=== PATIENT | male | born 1965 | race Caucasian/White ===

== ENCOUNTER 2019-12-08 15:30 | Outpatient (CLI) | payer OTHER ==
--- NOTE | 2019-12-08 18:19 | MRI ---
EXAM: RIGHT SHOULDER MRI WITHOUT IV CONTRAST: 12/08/19 HISTORY: Right shoulder pain. Prior post arthrogram MRI, 02/19/15. FINDINGS: There is a persistent os acromiale with a persistent synchondrosis with subchondral cystic change and associated arthrosis. Severe arthrosis of the AC joint with downsloping of the lateral clavicle and the anterior acromion resulting in depression of the myotendinous region of the rotator cuff particul lillie at the supraspinatus level. There is an irregular full thickness tear of the supraspinatus tendo n particularly the mid tendon and the conjoint tendon region with retraction back to the level of th e humeral dome. Associated undersurface and delaminating tear of the infraspinatus tendon back to the level of the myotendinous region. Undersurface and delaminating tear of the subscapularis tendon. Mi ld muscle volume loss of the supraspinatus muscle and moderate muscle volume loss of the infraspinatu s muscle with complete fatty replacement changes of the teres minor muscle. 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 Extensive tears of the rotator cuff. Evidence for abnormal signal associated with the intra-articular biceps tendon and biceps anchor concerning for interstitial tears as well as a t ear of the superior labrum. Other findings as above. POS: TPC
== END 2019-12-08 15:31 | disposition home or self-care (01) ==
LOC: SCSMRI 15:30
PROVIDERS: ATTEND Orthopaedic Surgery
DX: M75.101 Unspecified rotator cuff tear or rupture of right shoulder, not specified as traumatic (principal); M25.511 Pain in right shoulder; M19.011 Primary osteoarthritis, right shoulder

== ENCOUNTER 2020-02-29 06:50 | Outpatient (CLI) | payer OTHER ==
[2020-02-29 10:43] LABS: #Eosinphils 0.2 thou/uL (0.0-0.7); #Lymphocytes 1.4 thou/uL (1.20-3.40); #Monocytes 0.7 thou/uL (0.11-0.59); #Neutrophils 4.2 thou/uL (1.40-6.50); %Basophils 0.7 % (0.0-1.0); %Eosinophils 3.7 % (0.0-10.0); %Monocytes 10.7 % (0.0-10.0); %Neutrophils 63.9 % (42.0-75.0); Hemoglobin 13.9 g/dL (14.0-18.0); Mean Corpuscular HGB CONC 32.4 g/dL (32.0-36.0); Mean Corpuscular Volume 92.5 fL (78.0-98.0); Mean Platelet Volume 7.9 fL (7.4-10.4); Platelet Count 182 thou/uL (130-400); RBC Distribution Width 11.4 % (11.5-14.5); Red Blood Cell (RBC) Count 4.62 mill/uL (4.70-6.10); White Blood Cell (WBC) Count 6.5 thou/uL (4.8-10.8)
[2020-02-29 11:05] LABS: Anion Gap 11 mmol/L (10-20); BUN (Urea Nitrogen) 19 mg/dL (8.4-25.7); Calc. Creatinine Clearance 0 mL/min (70-130); Calcium 9.4 mg/dL (7.8-10.44); Carbon Dioxide 26 mmol/L (22-29); Chloride 106 mmol/L (98-107); Estimated GFR-MDRD 72; Glucose 80 mg/dL (70-105); Potassium 4.3 mmol/L (3.5-5.1); Sodium 139 mmol/L (136-145)
--- NOTE | 2020-02-29 12:51 | EKG ---
Test Reason : Blood Pressure : / mmHG Vent. Rate : 054 BPM Atrial Rate : 054 BPM P-R Int : 146 ms QRS Dur : 084 ms QT Int : 416 ms P-R-T Axes : 028 026 007 degrees QTc Int : 394 ms Sinus bradycardia Otherwise normal ECG When compared with ECG of 02-AUG-2002 20:57, Vent. rate has decreased BY 39 BPM Inverted T waves have replaced nonspecific T wave abnormality in Inferior leads QT has shortened Confirmed by DR. Iris GOULD ([id number]) on 02/29/2020 12:51:20 PM Referred By: IERO Confirmed By:DR. Iris GOULD
[2020-02-29 17:59] LABS: SARS-CoV-2 MS2 Positive; SARS-CoV-2 N Gene Negative; SARS-CoV-2 S Gene Negative; SARS-CoV-2 orf1ab Negative
== END 2020-02-29 06:51 | disposition home or self-care (01) ==
LOC: LABBT 06:50
PROVIDERS: ATTEND Orthopaedic Surgery
DX: Z01.812 Encounter for preprocedural laboratory examination (principal); Z11.59 Encounter for screening for other viral diseases; M75.101 Unspecified rotator cuff tear or rupture of right shoulder, not specified as traumatic; Z01.818 Encounter for other preprocedural examination
CPT/HCPCS: 80048; 85025; 87635; 93005; 93010; U0002

== ENCOUNTER 2020-03-02 07:19 | Day surgery (SDC) | payer OTHER ==
[2020-02-29 10:06] VITALS: BMI 34.8
[2020-03-02] MEDS ORDERED: Vancomycin 1.5 GRAM/300 ML BAG 1.5 GM/300 ML BAG ONE (07:31)
[2020-03-02] MEDS ORDERED: Midazolam HCl 2 mg/2 ml Vial ONE ×2 (08:56→09:46)
[2020-03-02] MEDS ORDERED: Fentanyl 100 MCG/2 ML VIAL ONE ×2 (08:56→09:46)
[2020-03-02] MEDS ORDERED: HYDROcodone/Acetaminophen 10/325 mg Tablet PO PRN ×2 (10:25)
[2020-03-02] MEDS ORDERED: Ketorolac Tromethamine 30 MG/ML VIAL IVP PRN (10:25)
[2020-03-02] MEDS ORDERED: Zolpidem Tartrate 5 MG TAB PO PRN (10:25)
[2020-03-02] MEDS ORDERED: Ondansetron PF 4 MG/2 ML Vial IVP PRN (10:25)
[2020-03-02] MEDS ORDERED: Acetaminophen 325 MG TAB PO PRN (10:25)
[2020-03-02] MEDS ORDERED: Promethazine HCl 25 MG/ML VIAL IM PRN (10:25)
[2020-03-02] MEDS ORDERED: traMADol HCl 50 MG TAB PO PRN ×2 (10:25)
[2020-03-02] MEDS ORDERED: Ropivacaine 0.2% 550 ML 550 ML NERVE BLCK SCH (10:25)
[2020-03-02] MEDS ORDERED: Fentanyl 100 MCG/2 ML VIAL SLOW IVP PRN (10:26)
[2020-03-02] MEDS ORDERED: Ropivacaine 0.5% HCl/PF (150 MG/30 ML VIAL) ONE (11:25)
[2020-03-02] MEDS ORDERED: Ondansetron PF 4 MG/2 ML Vial ONE (11:25)
[2020-03-02] MEDS ORDERED: Ketorolac Tromethamine 30 MG/ML VIAL ONE (11:25)
[2020-03-02] MEDS ORDERED: Dexamethasone 20 MG/5 ML VIAL ONE (11:25)
[2020-03-02] MEDS ORDERED: Glycopyrrolate 0.2 MG/ML 5 ML SYRINGE ONE (11:25)
[2020-03-02] MEDS ORDERED: PROPOFOL 200 MG/20 ML VIAL ONE (11:25)
[2020-03-02] MEDS ORDERED: Lidocaine 1% PF 5 ML VIAL ONE (11:25)
[2020-03-02] MEDS ORDERED: Rocuronium Bromide 10 MG/ML (10ML VIAL) ONE (11:25)
--- NOTE | 2020-03-05 08:36 | OP ---
DATE OF PROCEDURE: 03/02/2020 PREOPERATIVE DIAGNOSES: 1. Right shoulder impingement. 2. Right shoulder rotator cuff tear. 3. Right shoulder biceps tendon tear and instability. POSTOPERATIVE DIAGNOSES: 1. Right shoulder impingement. 2. Right shoulder rotator cuff tear. 3. Right shoulder biceps tendon tear and instability. PROCEDURES PERFORMED: Right open subacromial decompression followed by right open rotator cuff repair followed by right open biceps tenodesis. PLATING STRIPPER: Ronn Cantu PA-C BLOOD LOSS: Around 100. COMPLICATIONS: None. ANESTHESIA: The patient did have a general anesthetic. He also had a preoperative block. DISPOSITION: He did go to recovery room in stable condition. IMPLANTS: We used a 7 x 23 BioComposite Bio-Tenodesis screw for the biceps tenodesis. We used 2 BioComposite rotator cuff anchors and two 4.75 BioComposite SwiveLock to complete our rotator cuff repair. INDICATIONS: A 55-year-old male was found on exam and MRI scan to have a large complex cuff tear as well as biceps tendon tearing and instability and at this time, he opted to have surgical repair of this. DESCRIPTION OF PROCEDURE: After all appropriate consent forms were explained and signed, he was taken to the operating time and at this time was given general anesthetic. Once the level of anesthesia was appropriate, he was placed in a modified beach chair position with all bony prominences well padded. The right shoulder and upper extremity were then prepped and draped in standard surgical fashion. Bony anatomical landmarks were drawn out. We then made our incision anteriorly down through the skin only. Bovie was used to coagulate any brisk venous bleeding. Deltoid fascia was opened sharply and we took our anterior deltoid off the acromion subperiosteally in full thickness for later repair. This exposed the acromion and a saw was used to perform a small anterior-inferior acromioplasty. We were very careful not to get too aggressive on this as the patient was known to have an os acromiale. At this time, we were able to then remove our bursa and expose the rotator cuff pathology. We did remove a large disk of degenerative tissue at the AC joint. The distal clavicle itself was left alone. Once we were able to document our tear, we first turned our attention to the biceps tendon. The anterior most portion of the tear was at the beginning of the supraspinatus, the biceps tendon was visualized, that was found to be unstable and easily pulled posteriorly out of the bicipital groove. A curved Lara scissors was then used to cut it off the superior labral insertion. We then opened up the bicipital groove completely, coagulating any brisk venous bleeding and cleaning out any synovial tissue. We then sutured our tendon, removed the intra-articular portion of this, placed our guidewire, drilled and placed a 7 x 23 BioComposite Bio-Tenodesis screw in standard fashion. Sutures were tied over top of this so it could not back out. At this time, we turned our attention to the rotator cuff. The edges were debrided with new 15 blade. We then were able to lift up and evaluate and find our horizontal cleavage component of the rotator cuff. The more inferior component was pulled out laterally to pull it out to its normal length. We then used multiple interrupted Vicryl sutures going from top down, down up and tying these on top to repair our cleavage component of our rotator cuff tear. Once this was done, we did medialize our tendon approximately 6 mm removing the cartilage in this area. We then used a combination of 15 blade, curette, and rongeur to remove all soft tissue off of a large area of the greater tuberosity so that we would prepare the bed for the tendon to heal. Once this was done, we drilled some holes with a wire down through the tuberosity in multiple places, hoping to get bone marrow through these vents for later healing. We then used two of these holes by placing our tap and placing our BioComposite rotator cuff anchors directly off the articular edge. These anchors each had one set of normal sutures and one set of FiberTape. We then cut the FiberTape so it was in 2 limbs, and we then used the CornerBlueorpion device to pass one set of suture posteriorly for the posterior-most area of the rotator cuff tear reapproximation followed by placing our two FiberTapes approximately a centimeter apart. We then did the same for our anterior-most anchor. At this time, we pulled laterally on our traction sutures with the arm sitting at his side and then we set our two mattress sutures, one anterior and one posterior beginning our repair. Once these were tied, we then placed one FiberTape stitch from each anchor into an anterior and a posterior lateral row for a double-row repair. After this had been performed, we had excellent anterior cuff repair with compression of the tissue along the tuberosity and at this time, the arm was taken through full range of motion and we were very happy with this repair. At this time, we thoroughly irrigated and dried the wounds. We then placed multiple interrupted #1 Ethibond sutures to repair the deltoid through the acromion bone and to the periosteal soft tissue sleeve posteriorly. Once this had been done, we then took a large Vicryl and overran this and closed our deltoid fascia distally. We thoroughly irrigated and dried some more. We than used 2-0 Vicryl and karl to close the skin. At this time, a bulky sterile dressing was applied. The patient then had a Smart Sling placed on him and on his arm while he was asleep at this time. Once this had been placed, he was finally woken up and he was taken to recovery room in stable condition. All counts were correct at the end of the case and he did receive preoperative IV antibiotics. Job ID: [id number] [facility]ITALWanda
== END 2020-03-02 15:42 | disposition home or self-care (01) ==
LOC: SDC 07:19
PROVIDERS: ATTEND Orthopaedic Surgery
PROC: 3E0T3BZ Introduction of Anesthetic Agent into Peripheral Nerves and Plexi, Percutaneous Approach (ICD-10-PCS; principal; 2020-03-02)
PROC: 0RHJ04Z Insertion of Internal Fixation Device into Right Shoulder Joint, Open Approach (ICD-10-PCS; principal; 2020-03-02)
PROC: 0LQ10ZZ Repair Right Shoulder Tendon, Open Approach (ICD-10-PCS; principal; 2020-03-02)
PROC: 0LS30ZZ Reposition Right Upper Arm Tendon, Open Approach (ICD-10-PCS; principal; 2020-03-02)
PROC: 0RNJ0ZZ Release Right Shoulder Joint, Open Approach (ICD-10-PCS; principal; 2020-03-02)
DX: M75.101 Unspecified rotator cuff tear or rupture of right shoulder, not specified as traumatic (principal); M25.811 Other specified joint disorders, right shoulder; S46.111A Strain of muscle, fascia and tendon of long head of biceps, right arm, initial encounter; G89.18 Other acute postprocedural pain; E78.5 Hyperlipidemia, unspecified; G47.33 Obstructive sleep apnea (adult) (pediatric); Z79.899 Other long term (current) drug therapy; Z88.8 Allergy status to other drugs, medicaments and biological substances
CPT/HCPCS: A4306; C1713; J0690; J1100; J1885; J2001; J2250; J2405; J2704; J2795; J3010; J3370

== ENCOUNTER 2020-07-01 19:30 | Outpatient (CLI) | payer OTHER | END 2020-07-01 19:31 | disposition home or self-care (01) | LOC: SLEEPLAB 19:30 | PROVIDERS: ATTEND Family Medicine | DX: G47.33 Obstructive sleep apnea (adult) (pediatric) (principal); R53.83 Other fatigue; E66.9 Obesity, unspecified; R06.83 Snoring; F41.9 Anxiety disorder, unspecified; G47.00 Insomnia, unspecified; G47.10 Hypersomnia, unspecified; G47.61 Periodic limb movement disorder; Z68.33 Body mass index [BMI] 33.0-33.9, adult | CPT/HCPCS: 95811 ==

== ENCOUNTER 2020-11-01 10:13 | Inpatient (IN) | payer OTHER ==
[2020-11-01 11:18] LABS: ALT (SGPT) 48 U/L (8-55); AST (SGOT) 116 U/L (5-34); Albumin 3.8 g/dL (3.5-5.0); Alkaline Phosphatase 84 U/L (40-110); Anion Gap 15 mmol/L (10-20); BUN (Urea Nitrogen) 17 mg/dL (8.4-25.7); Bilirubin, Total 0.5 mg/dL (0.2-1.2); CK (CPK) Greater than 4000 U/L (30-200); Calc. Creatinine Clearance 0 mL/min (70-130); Calcium 8.3 mg/dL (7.8-10.44); Carbon Dioxide 23 mmol/L (22-29); Chloride 107 mmol/L (98-107); Globulin 3.1 g/dL (2.4-3.5); Glucose 107 mg/dL (70-105); Lipase 24 U/L (8-78); Potassium 4.7 mmol/L (3.5-5.1); Protein, Total 6.9 g/dL (6.0-8.3); Sodium 140 mmol/L (136-145)
[2020-11-01 11:19] LABS: #Basophils 0.1 thou/uL (0.0-0.2); #Eosinphils 0.3 thou/uL (0.0-0.7); #Lymphocytes 1.7 thou/uL (1.20-3.40); #Monocytes 1.2 thou/uL (0.11-0.59); #Neutrophils 7.1 thou/uL (1.40-6.50); %Basophils 0.6 % (0.0-1.0); %Eosinophils 3.3 % (0.0-10.0); %Lymphocytes 16.5 % (21.0-51.0); %Monocytes 11.7 % (0.0-10.0); %Neutrophils 67.9 % (42.0-75.0); Hemoglobin 13.7 g/dL (14.0-18.0); Mean Corpuscular HGB CONC 33.2 g/dL (32.0-36.0); Mean Corpuscular Hemoglobin 29.6 pg (27.0-31.0); Mean Corpuscular Volume 89.2 fL (78.0-98.0); Mean Platelet Volume 8.4 fL (7.4-10.4); Platelet Count 110 thou/uL (130-400); Platelet Morphology Comment Appears Decreased; RBC Distribution Width 11.2 % (11.5-14.5); Red Blood Cell (RBC) Count 4.63 mill/uL (4.70-6.10); White Blood Cell (WBC) Count 10.5 thou/uL (4.8-10.8)
[2020-11-01 11:20] LABS: MDiff Complete? YES
--- NOTE | 2020-11-01 11:34 | ULT ---
Venous duplex sonogram left lower extremity HISTORY: Left leg pain and edema. FINDINGS: Good color and spectral Doppler flow and compression of the common femoral vein and greater saphenous junction. Echogenic material with lack of compressibility is present within the femoral and popliteal veins and extends into the posterior tibial vein. Some residual flow around the thrombu s. IMPRESSION : Extensive incompletely occlusive DVT throughout the left leg.
[2020-11-01] MEDS ORDERED: Loperamide HCl 2 MG CAP PO PRN (11:57)
[2020-11-01] MEDS ORDERED: Ondansetron PF 4 MG/2 ML Vial IVP PRN (11:57)
[2020-11-01] MEDS ORDERED: Loratadine 10 MG TAB PO PRN (11:57)
[2020-11-01] MEDS ORDERED: Calcium Carbonate 500 MG ChewTAB PO PRN (11:57)
[2020-11-01] MEDS ORDERED: Ondansetron ODT 4 MG TAB PO PRN (11:57)
[2020-11-01] MEDS ORDERED: Guaifenesin DM 100-10/5 ML UDCUP PO PRN (11:57)
[2020-11-01] MEDS ORDERED: Cepastat Lozenges 1 LOZ PO PRN (11:57)
[2020-11-01] MEDS ORDERED: Labetalol HCl 100 MG/20 ML VIAL SLOW IVP PRN (11:57)
[2020-11-01] MEDS ORDERED: Bisacodyl 10 MG SUPP PR PRN (11:57)
[2020-11-01] MEDS ORDERED: Senokot S 8.6-50 MG TAB PO PRN (11:57)
[2020-11-01] MEDS ORDERED: HYDROcodone/Acetaminophen 5/325 mg Tablet PO PRN (11:57)
[2020-11-01] MEDS ORDERED: Diabetic Tussin 200 MG/10 ML UDCUP PO PRN (11:57)
[2020-11-01] MEDS ORDERED: Acetaminophen 325 MG TAB PO PRN (11:57)
[2020-11-01] MEDS ORDERED: Sodium Chloride 0.65% Nasal 44 ML BOT EA NARE PRN (11:57)
[2020-11-01] MEDS ORDERED: Zolpidem Tartrate 5 MG TAB PO PRN (11:57)
[2020-11-01] MEDS ORDERED: hydrALAZINE 20 MG/ML VIAL SLOW IVP PRN (11:57)
[2020-11-01] MEDS ORDERED: Aspirin Chewable 81 MG TAB ONE (12:26)
[2020-11-01] MEDS ORDERED: Enoxaparin Sodium 100 MG/ML SYRINGE ONE (12:26)
[2020-11-01] MEDS: Sodium Chloride 0.9% 1,000 ML IV SCH ×2 (16:18→23:12)
[2020-11-01 16:21] VITALS: BMI 35.6
[2020-11-01] MEDS: Famotidine 20 MG TAB PO SCH (20:03)
[2020-11-01] MEDS: Enoxaparin Sodium 30 MG/0.3 ML SYRINGE SC SCH (20:03)
[2020-11-01] MEDS: Enoxaparin Sodium 80 MG/0.8 ML SYRINGE SC SCH (20:03)
[2020-11-01 21:27] LABS: SARS-CoV-2 MS2 Positive; SARS-CoV-2 N Gene Negative; SARS-CoV-2 S Gene Negative; SARS-CoV-2 by NAA Not Detected (NotDetected); SARS-CoV-2 orf1ab Negative
[2020-11-02 04:48] LABS: Hemoglobin 11.7 g/dL (14.0-18.0); Platelet Count 101 thou/uL (130-400)
[2020-11-02 04:49] LABS: Prothrombin Time 13.8 sec (12.0-14.7)
[2020-11-02 05:01] LABS: ALT (SGPT) 35 U/L (8-55); AST (SGOT) 72 U/L (5-34); Albumin 3.1 g/dL (3.5-5.0); Alkaline Phosphatase 62 U/L (40-110); Anion Gap 10 mmol/L (10-20); BUN (Urea Nitrogen) 12 mg/dL (8.4-25.7); Bilirubin, Total 0.6 mg/dL (0.2-1.2); CK (CPK) 2428 U/L (30-200); Calc. Creatinine Clearance 161 mL/min (70-130); Carbon Dioxide 25 mmol/L (22-29); Chloride 108 mmol/L (98-107); Globulin 2.4 g/dL (2.4-3.5); Glucose 89 mg/dL (70-105); Protein, Total 5.5 g/dL (6.0-8.3); Sodium 139 mmol/L (136-145)
--- NOTE | 2020-11-02 06:12 | HP ---
PRIMARY CARE PHYSICIAN: Dr. Allan Clement. REASON FOR ADMISSION: DVT and rhabdomyolysis. HISTORY OF PRESENT ILLNESS: A 55-year-old male who has a history of obesity and sleep apnea, who presented to emergency room with increasing left lower extremity swelling since yesterday, the patient was having pain in his left leg, the patient was also having body ache and muscle pain, he did not have any fever or chills. He had one day nausea, vomiting, diarrhea that has been resolved, but he denies any upper or lower respiratory symptoms, he denies any exposure with COVID-19, he denies any flu like illness, he denies any flu vaccination. In the emergency room, the patient's left lower extremity was swollen and ultrasound was done, which was positive for DVT, the patient was given Lovenox 1 mg/kg, the patient was also found with associated rhabdomyolysis, the patient is being admitted to the hospital for further evaluation and treatment. PAST MEDICAL HISTORY: 1. History of CHECKER LOADER vasculitis in 2001. 2. Morbid obesity. 3. Obstructive sleep apnea. 4. Dyslipidemia. PAST SURGICAL HISTORY: Appendicectomy in 1979, brain biopsy and temporal biopsy in 2001, colonoscopy. PAST PSYCHIATRIC HISTORY: Reviewed and negative. FAMILY HISTORY: Positive for hypertension as well as diabetes among several family members. No family history of blood clot disorder. SOCIAL HISTORY: The patient is , no history of tobacco, alcohol, or illicit drug abuse. MEDICATIONS: The patient is taking, 1. Vitamin D3 one capsule daily. 2. Multivitamin daily. 3. Viagra as needed. 4. CPAP. ALLERGIES: THE PATIENT IS ALLERGIC TO ZOCOR, WHICH GIVES MUSCLE WEAKNESS. REVIEW OF SYSTEMS: All review of systems reviewed and negative except as mentioned in HPI. PHYSICAL EXAMINATION: VITAL SIGNS: On arrival, blood pressure 120/75, pulse 82, respiratory rate 18, temperature 98.6, saturation 98% on room air. Weight 250 pounds. GENERAL: The patient is currently alert and awake. No acute distress. HEENT: Head; normocephalic, atraumatic. NECK: Supple. No JVD. No meningeal signs of irritation. LUNGS: Clear to auscultation without any rhonchi or rales. CARDIAC: S1 and S2 regular. No murmur. No gallop. No rub. ABDOMEN: Morbid opacity, limiting examination. No peritoneal signs. No guarding. No rigidity. No rebound. BACK: Unremarkable. No CVA tenderness. EXTREMITIES: Upper extremities, passive movement of all joints are normal. Lower extremity, left lower extremity is swollen and tender. No erythema. PSYCHIATRIC: Normal affect. NEUROLOGIC: Nonfocal examination. SIGNIFICANT LABORATORY DATA: CBC; WBC 10.5, hemoglobin 13.7, platelet 110. D-dimer 10.7. BMP; sodium 140, potassium 4.7, chloride 107, carbon dioxide 23, BUN 17, creatinine 0.88, glucose 107, calcium 8.3. LFT; AST 116, ALT 48, alkaline phosphatase 84, albumin 3.8. CK greater than 4000. Troponin I 0.023. BNP 34. Lipase 24. Ultrasound lower extremity showing popliteal vein and posterior tibial vein deep vein thrombosis. ASSESSMENT AND PLAN: 1. Acute left lower extremity deep vein thrombosis. The patient does not have any provocating factor, no immobilization, no trauma, the patient has associated rhabdomyolysis, the patient has extensive deep vein thrombosis. We will consider keeping in hospital and closely monitor, we will start with Lovenox 1 mg/kg subcu twice daily, eventually we will convert to oral anticoagulant therapy like Eliquis or Xarelto upon discharge. The patient will need age-appropriate cancer screening after discharge. 2. Rhabdomyolysis. We will check COVID-19, we will continue with IV fluid and monitor total CK level, when total CK level is improved, then we will consider discharging him home. 3. Obstructive sleep apnea, on CPAP. The patient will continue CPAP machine. 4. Mild thrombocytopenia. We will monitor platelet counts while on heparin. 5. Deep vein thrombosis prophylaxis. The patient is already on full dose of Lovenox therapy. 6. GI prophylaxis, Pepcid 20 mg p.o. twice daily. 7. Morbid obesity. Dietary education given. Weight loss education given. DISPOSITION PLAN: Based on clinical course. Plan of care discussed with the patient and family member at bedside. Job ID: [id number]
[2020-11-02] MEDS: Enoxaparin Sodium 30 MG/0.3 ML SYRINGE SC SCH ×2 (08:12→20:41)
[2020-11-02] MEDS: Enoxaparin Sodium 80 MG/0.8 ML SYRINGE SC SCH ×2 (08:12→20:41)
[2020-11-02] MEDS: Famotidine 20 MG TAB PO SCH ×2 (08:13→20:41)
[2020-11-02] MEDS: Sodium Chloride 0.9% 1,000 ML IV SCH ×2 (10:10→20:42)
--- NOTE | 2020-11-02 12:46 | PDOC.HOSPP ---
- Subjective Encounter Date: 11/02/20 Encounter Time: 07:00 Subjective: Patient seen and examined. No new complaints. No overnight events - Objective Vital Signs & Weight: Vital Signs (12 hours) Temp Pulse Resp BP BP Pulse Ox 11/02/20 11:55 97.9 F 54 L 18 137/70 96 11/02/20 08:12 95 11/02/20 08:08 99.0 F 56 L 18 139/83 95 11/02/20 04:41 95 11/02/20 04:00 98.9 F 70 16 122/71 93 L Weight Weight 255 lb 1.6 oz I&O: 11/01/20 11/02/20 11/03/20 06:59 06:59 06:59 Intake Total 2120 Output Total 1550 Balance 570 Result Diagrams: 11/02/20 04:00 11/02/20 04:00 Hospitalist ROS - Review of Systems Constitutional: denies: fever, chills, sweats, weakness, malaise, other Eyes: denies: pain, vision change, conjunctivae inflammation, eyelid inflammation, redness, other ENT: denies: ear pain, ear discharge, nose pain, nose discharge, nose congestion, mouth pain, mouth swelling, throat pain, throat swelling, other Respiratory: denies: cough, dry, shortness of breath, hemoptysis, SOB with excertion, pleuritic pain, sputum, wheezing, other Cardiovascular: denies: chest pain, palpitations, orthopnea, paroxysmal noc. dyspnea, edema, light headedness, other Gastrointestinal: denies: nausea, vomiting, abdominal pain, diarrhea, constipation, melena, hematochezia, other Genitourinary: denies: dysuria, frequency, incontinence, hematuria, retention, other Musculoskeletal: denies: neck pain, shoulder pain, arm pain, back pain, hand pain, leg pain, foot pain, other Skin: denies: rash, lesions, shaneka, bruising, other - Medication Medications: Active Medications Generic Name Dose Route Start Last Admin Trade Name Freq PRN Reason Stop Dose Admin Enoxaparin Sodium 80 mg 11/01/20 21:00 11/02/20 08:12 Enoxaparin Sodium 80 Mg/0.8 Ml Syringe SC 80 mg 0900,2100 ISSAC Administration Enoxaparin Sodium 30 mg 11/01/20 21:00 11/02/20 08:12 Enoxaparin Sodium 30 Mg/0.3 Ml Syringe SC 30 mg Q12HR ISSAC Administration Famotidine 20 mg 11/01/20 21:00 11/02/20 08:13 Famotidine 20 Mg Tab PO 20 mg BID ISSAC Administration Sodium Chloride 1,000 mls @ 100 mls/hr 11/01/20 12:00 11/02/20 10:10 Normal Saline 0.9% IV 1,000 mls .Q10H ISSAC Administration - Exam General Appearance: NAD, awake alert Eye: PERRL, anicteric sclera ENT: normocephalic atraumatic, no oropharyngeal lesions Neck: supple, symmetric, no JVD, no thyromegaly Heart: RRR, no murmur, no gallops, no rubs Respiratory: no wheezes, no rales, no ronchi Gastrointestinal: soft, non-tender, non-distended, normal bowel sounds Extremities: no cyanosis, no clubbing Skin: normal turgor, no lesions Neurological: no focal deficits Musculoskeletal: normal tone, normal strength Psychiatric: normal affect, normal behavior, A&O x 3 Hosp A/P (1) Deep vein thrombosis Code(s): I82.409 - ACUTE EMBOLISM AND THOMBOS UNSP DEEP VN UNSP LOWER EXTREMITY Status: Acute Qualifiers: DVT location: lower extremity Affected thrombotic vein of extremity: popliteal Laterality: left (2) Rhabdomyolysis Code(s): M62.82 - RHABDOMYOLYSIS Status: Acute Qualifiers: Rhabdomyolysis type: non-traumatic Qualified Code(s): M62.82 - Rhabdomyolysis (3) Obesity (BMI 30-39.9) Code(s): E66.9 - OBESITY, UNSPECIFIED Status: Chronic (4) NEGRITA on CPAP Code(s): G47.33 - OBSTRUCTIVE SLEEP APNEA (ADULT) (PEDIATRIC); Z99.89 - DEPENDENCE ON OTHER ENABLING MACHINES AND DEVICES Status: Chronic - Plan old records reviewed/req, DVT proph w/lovenox Continue Lovenox 1 mg/kg Continue IV fluid Repeat CK level tomorrow Ambulate as tolerated We will consider changing to Eliquis in the next 24 hours, Expecting discharge in 24 to 48 hours.
[2020-11-03] MEDS: Sodium Chloride 0.9% 1,000 ML IV SCH ×3 (06:12→20:52)
[2020-11-03] MEDS: Famotidine 20 MG TAB PO SCH ×2 (08:49→20:00)
[2020-11-03] MEDS: Enoxaparin Sodium 80 MG/0.8 ML SYRINGE SC SCH (08:50)
[2020-11-03] MEDS: Enoxaparin Sodium 30 MG/0.3 ML SYRINGE SC SCH (08:50)
--- NOTE | 2020-11-03 09:54 | PDOC.HOSPP ---
- Subjective Encounter Date: 11/03/20 Encounter Time: 08:00 Subjective: Patient seen and examined bedside today, no overnight event, patient is clinically doing better, he has no muscle pain, his total CK is also reducing, - Objective Vital Signs & Weight: Vital Signs (12 hours) Temp Pulse Resp BP Pulse Ox 11/03/20 07:15 98.5 F 86 18 134/80 95 11/03/20 05:41 98 11/03/20 02:42 98.6 F 60 13 137/73 98 Weight Weight 255 lb 1.6 oz I&O: 11/02/20 11/03/20 11/04/20 06:59 06:59 06:59 Intake Total 2120 3810 Output Total 1550 2975 Balance 570 835 Result Diagrams: 11/02/20 04:00 11/02/20 04:00 EKG Reviewed by me: Yes (NSR) Hospitalist ROS - Review of Systems ENT: denies: ear pain, ear discharge, nose pain, nose discharge, nose congestion, mouth pain, mouth swelling, throat pain, throat swelling, other Respiratory: denies: cough, dry, shortness of breath, hemoptysis, SOB with excertion, pleuritic pain, sputum, wheezing, other Cardiovascular: denies: chest pain, palpitations, orthopnea, paroxysmal noc. dyspnea, edema, light headedness, other Gastrointestinal: denies: nausea, vomiting, abdominal pain, diarrhea, const ipation, melena, hematochezia, other Genitourinary: denies: dysuria, frequency, incontinence, hematuria, retention, other Musculoskeletal: denies: neck pain, shoulder pain, arm pain, back pain, hand pain, leg pain, foot pain, other - Medication Medications: Active Medications Generic Name Dose Route Start Last Admin Trade Name Freq PRN Reason Stop Dose Admin Enoxaparin Sodium 80 mg 11/01/20 21:00 11/03/20 08:50 Enoxaparin Sodium 80 Mg/0.8 Ml Syringe SC 80 mg 0900,2100 ISSAC Administration Enoxaparin Sodium 30 mg 11/01/20 21:00 11/03/20 08:50 Enoxaparin Sodium 30 Mg/0.3 Ml Syringe SC 30 mg Q12HR ISSAC Administration Famotidine 20 mg 11/01/20 21:00 11/03/20 08:49 Famotidine 20 Mg Tab PO 20 mg BID ISSAC Administration Sodium Chloride 1,000 mls @ 100 mls/hr 11/01/20 12:00 11/03/20 06:12 Normal Saline 0.9% IV 1,000 mls .Q10H ISSAC Administration - Exam General Appearance: NAD, awake alert Eye: PERRL, anicteric sclera ENT: normocephalic atraumatic, no oropharyngeal lesions Neck: supple, symmetric, no JVD, no thyromegaly Heart: RRR, no murmur, no gallops, no rubs Respiratory: CTAB, no wheezes, no rales, no ronchi Gastrointestinal: soft, non-tender, non-distended, normal bowel sounds Extremities: no cyanosis, no clubbing, no edema Skin: normal turgor, no lesions, no rashes Neurological: no focal deficits Musculoskeletal: normal tone, normal strength, no muscle wasting Psychiatric: normal affect, normal behavior, A&O x 3 Hosp A/P (1) Deep vein thrombosis Code(s): I82.409 - ACUTE EMBOLISM AND THOMBOS UNSP DEEP VN UNSP LOWER EXTREMITY Status: Acute Qualifiers: DVT location: lower extremity Affected thrombotic vein of extremity: popliteal Laterality: left (2) Rhabdomyolysis Code(s): M62.82 - RHABDOMYOLYSIS Status: Acute Qualifiers: Rhabdomyolysis type: non-traumatic Qualified Code(s): M62.82 - Rhabdomyolysis (3) Obesity (BMI 30-39.9) Code(s): E66.9 - OBESITY, UNSPECIFIED Status: Chronic (4) NEGRITA on CPAP Code(s): G47.33 - OBSTRUCTIVE SLEEP APNEA (ADULT) (PEDIATRIC); Z99.89 - DEPENDENCE ON OTHER ENABLING MACHINES AND DEVICES Status: Chronic - Plan old records reviewed/req, plan discussed w/ family Today we will change Lovenox to Eliquis Continue IV fluid at 75 mill per hour Repeat CK level and PT/INR tomorrow Ambulate as tolerated Discussed with the patient's family member We will consider discharge tomorrow morning Patient education about all kind of anticoagulation and risk and benefit of all medication discussed with them and they finally decided about Eliquis therapy
--- NOTE | 2020-11-03 15:23 | EKG ---
Test Reason : LEG SWELLING Blood Pressure : / mmHG Vent. Rate : 068 BPM Atrial Rate : 068 BPM P-R Int : 144 ms QRS Dur : 080 ms QT Int : 394 ms P-R-T Axes : 049 037 040 degrees QTc Int : 418 ms Normal sinus rhythm Normal ECG Confirmed by JENNIFER SINGH, KEEGAN ([id number]), editor news BENJAMIN HINES ([id number]) on 11/03/2020 3:22:35 PM Referred By: JENNIFER Confirmed By:KEEGAN RODRIGUEZ MD
[2020-11-03] MEDS: Apixaban 5 MG TAB PO SCH (20:00)
[2020-11-04 04:24] LABS: Hemoglobin 11.8 g/dL (14.0-18.0); Platelet Count 135 thou/uL (130-400)
[2020-11-04 04:27] VITALS: TEMP 98.4
[2020-11-04 04:39] LABS: INR-International Normal Ratio 1.1; PTT 33.7 sec (22.9-36.1); Prothrombin Time 14.6 sec (12.0-14.7)
[2020-11-04 04:45] LABS: CK (CPK) 553 U/L (30-200); Calc. Creatinine Clearance 157 mL/min (70-130)
[2020-11-04 07:33] VITALS: BP 138/73
[2020-11-04] MEDS: Apixaban 5 MG TAB PO SCH (08:51)
[2020-11-04] MEDS: Famotidine 20 MG TAB PO SCH (08:51)
--- NOTE | 2020-11-04 10:32 | PDOC.DS.DS ---
Provider - Provider Date of Admission: 11/01/20 11:57 Date of Discharge: 11/04/20 Admitting Provider: Virginia Castro MD Primary Care Physician: ALLAN CLEMENT JR, MD Course - Hospital Course Hospital Course: 55-year-old male who was admitted by me on November 02, 2020, please see my HPI for more detail, patient admitted for left lower extremity swelling and he was found with a deep vein thrombosis, he also had associated rhabdomyolysis, his COVID-19 was negative, he was admitted in hospital, he was given Lovenox 1 mg/kg for couple of days and then we changed to Eliquis, he is plan for discharge to Eliquis 10 mg twice daily for total 7 days including Lovenox given in hospital,, and subsequently he will change to 5 mg p.o. twice daily, all medication side effect discussed with the patient, patient given necessary discharge instruction and answered all his questions. Patient is advised to follow-up with primary care physician at that time patient will have thrombotic panel to rule out any hypercoagulable state, patient will also need age-appropriate cancer screening through his PCP. Resuscitation Status: 11/01/20 11:57 Resuscitation Status Routine Resuscitation Status: FULL: Full Resuscitation - Labs Lab Results: 11/04/20 04:01 11/04/20 04:01 Abnormal Lab Results - Last 48 hrs 11/03/20 03:53: Creatine Kinase 1332 H 11/04/20 04:01: Creatine Kinase 553 H 11/04/20 04:01: Hgb 11.8 L, Hct 36.2 L Microbiology - Entire Visit 11/03/20 08:55 Stool - Final - Physical Exam Vitals: Vital Signs (12 hours) Temp Pulse Resp BP BP Pulse Ox 11/04/20 07:38 94 L 11/04/20 07:30 98.4 F 52 L 16 138/73 94 L 11/04/20 04:00 98.4 F 50 L 20 130/72 97 11/04/20 00:00 50 L Weight Weight 255 lb 1.6 oz Physical Exam: The patient was seen and examined on the day of discharge. General patient is currently alert and awake no acute distress Head normocephalic atraumatic Neck supple no JVD no meningeal signs of irritation Lungs clear to auscultation without any rhonchi or rales Cardiac S1-S2 regular no murmur no gallop no rub Abdomen obesity noted, bowel sound present, nontender nondistended no organomegaly no mass Extremity no edema Neurology nonfocal examination Problem - Problem (1) Deep vein thrombosis Code(s): I82.409 - ACUTE EMBOLISM AND THOMBOS UNSP DEEP VN UNSP LOWER EXTREMITY Status: Acute Qualifiers: DVT location: lower extremity Affected thrombotic vein of extremity: popl iteal Laterality: left (2) Rhabdomyolysis Code(s): M62.82 - RHABDOMYOLYSIS Status: Acute Qualifiers: Rhabdomyolysis type: non-traumatic Qualified Code(s): M62.82 - Rhabdomyolysis (3) Obesity (BMI 30-39.9) Code(s): E66.9 - OBESITY, UNSPECIFIED Status: Chronic (4) NEGRITA on CPAP Code(s): G47.33 - OBSTRUCTIVE SLEEP APNEA (ADULT) (PEDIATRIC); Z99.89 - DEPENDENCE ON OTHER ENABLING MACHINES AND DEVICES Status: Chronic Plan - Discharge Medications Prescriptions: Apixaban [Eliquis] 10 mg PO BID #60 tab Home Medications: Medication Instructions Recorded Confirmed Type Cholecalciferol (Vitamin D3) 2,000 unit PO DAILY 02/29/20 11/01/20 History [Vitamin D3] Multivitamin [Multi-Vitamin Daily] 1 tab PO DAILY 02/29/20 11/01/20 History Apixaban [Eliquis] 10 mg PO BID #60 tab 11/04/20 Rx Allergies: No Known Allergies Allergy (Verified 11/01/20 16:13) - Discharge Instructions Activity:: Activity as Tolerated Nourishment:: Heart Healthy Diet Therapies:: Not Applicable Equipment/Supplies:: Not Applicable IV Therapy:: Not Applicable - Follow up Plan Referrals: Allan Clement Jr, MD [Primary Care Provider] - 7 Days (Follow up with your primary care provider within 7 days. ) Disposition: HOME Quality - Care Measures CORE MEASURES:: N/A
== END 2020-11-04 11:00 | disposition home or self-care (01) | DRG 300 ==
LOC: ERS 10:13 → 2NO 11:57
PROVIDERS: ADMIT Internal Medicine; ATTEND Internal Medicine
DX: I82.402 Acute embolism and thrombosis of unspecified deep veins of left lower extremity (principal); M62.82 Rhabdomyolysis; E78.5 Hyperlipidemia, unspecified; E66.01 Morbid (severe) obesity due to excess calories; D69.6 Thrombocytopenia, unspecified; G47.33 Obstructive sleep apnea (adult) (pediatric); Z98.890 Other specified postprocedural states; Z87.891 Personal history of nicotine dependence; Z90.49 Acquired absence of other specified parts of digestive tract; Z79.899 Other long term (current) drug therapy; Z88.8 Allergy status to other drugs, medicaments and biological substances; Z68.35 Body mass index [BMI] 35.0-35.9, adult; Z99.89 Dependence on other enabling machines and devices; Z20.822 Contact with and (suspected) exposure to COVID-19
CPT/HCPCS: 36415; 80053; 82270; 82550; 82565; 83690; 83880; 84484; 85014; 85018; 85025; 85049; 85379; 85610; 85730; 87635; 93005; 96372; J1650; U0003

== ENCOUNTER 2023-08-24 10:39 | Outpatient (CLI) | payer BC | END 2023-08-24 10:40 | disposition home or self-care (01) | LOC: BICRAD 10:39 | PROVIDERS: ATTEND Nurse Practitioner Family | DX: R29.898 Other symptoms and signs involving the musculoskeletal system (principal); M47.816 Spondylosis without myelopathy or radiculopathy, lumbar region | CPT/HCPCS: 72100 ==

== ENCOUNTER 2023-09-21 08:28 | Outpatient (CLI) | payer BC | END 2023-09-21 08:29 | disposition home or self-care (01) | LOC: MRI 08:28 | PROVIDERS: ATTEND Family Medicine | DX: M51.16 Intervertebral disc disorders with radiculopathy, lumbar region (principal); M48.061 Spinal stenosis, lumbar region without neurogenic claudication; M48.07 Spinal stenosis, lumbosacral region | CPT/HCPCS: 72148 ==

== ENCOUNTER 2024-01-28 17:19 | Outpatient (CLI) | payer BC ==
[2024-01-28 18:10] LABS: Hematocrit 41.1 % (38.8-50.0); Hemoglobin 14.2 g/dL (13.5-17.5); Mean Corpuscular HGB CONC 34.5 g/dL (32.0-36.0); Mean Corpuscular Hemoglobin 30.9 pg (27.0-33.0); Mean Corpuscular Volume 89.5 fl (81.2-95.1); Mean Platelet Volume 10.9 fl (7.4-10.4); Platelet Count 224 10x3/uL (150-450); RBC Distribution Width 11.8 % (11.5-14.5); Red Blood Cell (RBC) Count 4.59 10x6/uL (4.32-5.72); White Blood Cell (WBC) Count 8.2 10x3/uL (3.5-10.5)
== END 2024-01-28 17:20 | disposition home or self-care (01) ==
LOC: LABBT 17:19
PROVIDERS: ATTEND Neurological Surgery
DX: Z01.812 Encounter for preprocedural laboratory examination (principal); M54.16 Radiculopathy, lumbar region
CPT/HCPCS: 85027

== ENCOUNTER 2024-05-19 12:52 | Outpatient (CLI) | payer BC | END 2024-05-19 12:53 | disposition home or self-care (01) | LOC: MRI 12:52 | PROVIDERS: ATTEND Internal Medicine Interventional Cardiology | DX: M47.26 Other spondylosis with radiculopathy, lumbar region (principal); M48.061 Spinal stenosis, lumbar region without neurogenic claudication; M48.07 Spinal stenosis, lumbosacral region; M40.46 Postural lordosis, lumbar region | CPT/HCPCS: 72158 ==